=== PATIENT | male | born 1945 | race Caucasian/White ===

== ENCOUNTER 2018-02-12 19:50 | Emergency (ER) | payer OTHER, MEDICARE ==
[~2018-02-12] VITALS: Ht 167.6 cm; Wt 86.8 kg
[~2018-02-12 19:50] MED LIST: AMLO-110 PO; CLOP1TAB15 PO; FLNIN NAE; FLX10 PO; LISI-787 PO; LPT40 PO; MAGN1TAB19 PO; MULT-513 PO; OMEG10007 PO; RANI150T2 PO
[2018-02-12 19:54] VITALS: TEMP 36.8; Ht 167.6 cm; Wt 86.8 kg
[2018-02-12 20:20] LABS: BASO % 0.4 %; BASO ABS # 0.03 K/uL (0-0.2); EOS % 6.7 %; EOS ABS # 0.48 K/uL (0-0.5); HEMATOCRIT 42.8 % (42-52); HEMOGLOBIN 15.1 g/dL (14.0-18.0); IG# 0.01 K/uL (0.00-0.02); LYMPH % 46.2 %; LYMPH ABS # 3.33 K/uL (1.2-3.4); MEAN CELL VOLUME 90.1 fL (80-100); MEAN CORPUSCULAR HEMOGLOBIN 31.8 pg (25-34); MEAN CORPUSCULAR HGB CONC 35.3 g/dl (32-36); MEAN PLATELET VOLUME 10.3 fL (7.4-10.4); MONO % 7.4 %; MONO ABS # 0.53 K/uL (0.11-0.59); NEUT % 39.2 %; NEUT ABS # 2.83 K/uL (1.4-6.5); PLATELET COUNT 202 K/uL (130-400); RED CELL DISTRIBUTION WIDTH CV 12.4 % (11.5-14.5); RED CELL DISTRIBUTION WIDTH SD 40.7 fL (36.4-46.3); WHITE BLOOD COUNT 7.21 K/uL (4.8-10.8)
[2018-02-12 20:49] LABS: ALBUMIN 3.9 gm/dl (3.4-5.0); CALCIUM 9.1 mg/dl (8.5-10.1); CREATININE 1.06 mg/dl (0.60-1.40); POTASSIUM 3.7 mmol/L (3.5-5.1); TOTAL PROTEIN 7.4 gm/dl (6.4-8.2)
--- NOTE | 2018-02-12 20:52 | DIAGNOSTIC IMAGING REPORT ---
CHEST ONE VIEW PORTABLE HISTORY: Atypical chest pain COMPARISON: Chest 11/25/2014. FINDINGS: The heart remains borderline enlarged. Stable linear scarlike density at the left lung base. The lungs are otherwise clear. No pleural effusions. No pneumothorax. IMPRESSION: No significant change compared to the prior study. No acute process. Electronically signed by: Laurent Abbasi M.D. 02/12/2018 8:51 PM Dictated Date/Time: 02/12/2018 8:50 PM
--- NOTE | 2018-02-12 21:03 | EMERGENCY ROOM VISIT NOTE ---
ED Visit Note First contact with patient: 19:57 Resident Physician Supervision Note: I was present with Dr. Dwain Mcbride during the history and exam. I discussed the case with the resident and agree with the findings and plan as documented in the note. Documented By: Christopher Flores
--- NOTE | 2018-02-12 21:07 | EMERGENCY ROOM VISIT NOTE ---
History First contact with patient: 19:57 Chief Complaint: CARDIAC ASSESSMENT Stated Complaint: CHEST PAINS AND PALPITATIONS History of Present Illness The patient is a 72 year old male who presents to the Emergency Room with complaints of palpitations starting this afternoon while driving back from [place]. Patient has had this intermittently in the past, starting 10+ years ago but today it was more prolonged and noticeable. Patient denies any SOB, chest pain, dizziness, syncope or vertigo. Patient states that his pain may all be muscle related. He hasn't done any heavy lifting recently. There is no numbness or tingling in the extremities. who is present states that she thinks that pt's legs were more swollen starting today. Patient has no significant cardiac history. No previous diagnosis of A Fib or A Flutter. He did have a cath 10 years ago and no stents were placed. Pt did mention he was currently having a palpitation - HR on monitor was in the 70s. There was evidence of contraction of the pectoralis major muscle. Pt had one cup of caffeine today - that is normal for him. ROS: No diarrhea, no vomiting, hasn't eaten any new foods. Review of Systems See HPI for pertinent positives and negatives. A total of ten systems were reviewed and were otherwise negative. Constitutional: No fever, No chills Respiratory: No cough, No sputum, No shortness of breath, No dyspnea on exertion Cardiovascular: + palpitations, No chest pain Abdomen: No pain, No nausea, No vomiting, No diarrhea, No constipation Musculoskeletal: No joint pain Genitourinary - Male: No hematuria, No dysuria Past Medical/Surgical History Medical Problems: (1) Benign hypertension (2) History of renal calculi (3) Hyperlipidemia (4) Sleep apnea (5) Tobacco user (6) Transient global amnesia Surgical Problems: (1) Status post cardiac catheterization Social History Smoking Status: Former Smoker Marital Status: Housing Status: lives with family Occupation Status: employed Current/Historical Medications Scheduled Amlodipine (Norvasc), 5 MG PO DAILY Atorvastatin (Lipitor), 40 MG PO QPM Clopidogrel (Plavix), 75 MG PO DAILY Fish Oil ([place]-3), 1 CAP PO BID Lisinopril/Hctz (Zestoretic 20MG/12.5MG), 1 TAB PO BID Magnesium Oxide (Mg Supplement (Magnesium Oxide), 400 MG PO DAILY Multivitamins/Minerals (Mvi With Minerals), 1 TAB PO DAILY Ranitidine HCl (Ranitidine HCl), 150 MG PO BID Scheduled PRN Cyclobenzaprine Hcl (Flexeril *), 5 MG PO TID PRN Fluticasone Propionate (Flonase Nasal [place] *), 2 SPRAYS YUNIOR DAILY PRN Physical Exam Vital Signs Date Time Temp Pulse Resp B/P (MAP) Pulse Ox O2 Delivery O2 Flow Rate FiO2 02/12/18 20:40 69 18 155/87 98 Room Air 02/12/18 20:39 67 02/12/18 20:02 97 Room Air 02/12/18 19:54 36.8 80 18 169/80 94 Room Air Physical Exam Gen: No acute distress. Obese. HEENT: Head - normocephalic and atraumatic. Pupils are equal, round, and reactive to light. Extraocular eye muscles are intact and sclera are anicteric. Nose - moist nasal mucosa without discharge. Mouth - moist buccal mucosa. Oropharynx is nonerythematous and there is no tonsillar exudate or edema noted. Neck: Supple; no JVD, nuchal rigidity, cervical lymphadenopathy, or auscultated bruits. Heart: Regular rate and rhythm. There is a normal S1 and S2 with no murmurs, clicks, or gallops appreciated. Lungs: Clear to auscultation bilaterally with no wheezes, rales, or rhonchi. Abdomen: Soft, completely nontender, nondistended, with good bowel sounds. There are no palpable pulsatile masses or hepatosplenomegaly. There is no guarding, rigidity, or rebound noted. Extremities: No evidence of cyanosis, clubbing. 2+ pitting edema noted on the LE. There are easily palpable peripheral pulses. Neuro:The patient is awake and alert, oriented to day, time, and place. Muscle strength is 5/5 in all 4 extremities. 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 There are no cerebellar signs. Medical Decision & Procedures Laboratory Results 02/12/18 20:06 Red Blood Count 4.75, Mean Corpuscular Volume 90.1, Mean Corpuscular Hemoglobin 31.8, Mean Corpuscular Hemoglobin Concent 35.3, Mean Platelet Volume 10.3, Neutrophils (%) (Auto) 39.2, Lymphocytes (%) (Auto) 46.2, Monocytes (%) (Auto) 7.4, Eosinophils (%) (Auto) 6.7, Basophils (%) (Auto) 0.4, Neutrophils # (Auto) 2.83, Lymphocytes # (Auto) 3.33, Monocytes # (Auto) 0.53, Eosinophils # (Auto) 0.48, Basophils # (Auto) 0.03 Test 02/12/18 20:06 02/12/18 20:09 White Blood Count 7.21 K/uL (4.8-10.8) Red Blood Count 4.75 M/uL (4.7-6.1) Hemoglobin 15.1 g/dL (14.0-18.0) Hematocrit 42.8 % (42-52) Mean Corpuscular Volume 90.1 fL (80-100) Mean Corpuscular Hemoglobin 31.8 pg (25-34) Mean Corpuscular Hemoglobin Concent 35.3 g/dl (32-36) Platelet Count 202 K/uL (130-400) Mean Platelet Volume 10.3 fL (7.4-10.4) Neutrophils (%) (Auto) 39.2 % Lymphocytes (%) (Auto) 46.2 % Monocytes (%) (Auto) 7.4 % Eosinophils (%) (Auto) 6.7 % Basophils (%) (Auto) 0.4 % Neutrophils # (Auto) 2.83 K/uL (1.4-6.5) Lymphocytes # (Auto) 3.33 K/uL (1.2-3.4) Monocytes # (Auto) 0.53 K/uL (0.11-0.59) Eosinophils # (Auto) 0.48 K/uL (0-0.5) Basophils # (Auto) 0.03 K/uL (0-0.2) RDW Standard Deviation 40.7 fL (36.4-46.3) RDW Coefficient of Variation 12.4 % (11.5-14.5) Immature Granulocyte % (Auto) 0.1 % Immature Granulocyte # (Auto) 0.01 K/uL (0.00-0.02) Bedside Troponin I < 0.030 ng/ml (0-0.045) ECG Per My Interpretation Indication: palpitations Rate (beats per minute): 85 Rhythm: normal sinus Findings: 1st degree AV block, no acute ischemic change, no ectopy Change: no significant change Medical Decision The patient's care and disposition was discussed with , Attending ED Physician. This is a 72M with palpitations. Differential diagnosis include ectopy, cardiac dysrhythmia, electrolyte abnormality, thyroid dysfunction, pulmonary embolism, infection, gastrointestinal, as well as others were entertained. Triage Nursing notes were reviewed. ED Course included an extensive history and physical exam, labs, X-ray. 8:15 - Pt was seen and examined by resident. 8:30 - Discussed pt with Dr. Flores. 9:15 - Results discussed with patient. No metabolic cause of palpitations was found. Pt further states that when he bring his left arm closer to his body his palpitations go away. This suggest an MSK etiology. ALP was also incidentally found to be elevated. Pt appears to have always been on the high end of normal in terms of ALP. Defer to PCP for further workup - repeating ALP , GGT or Liver US. The pt was informed about the findings as listed above. All questions were answered. Return instructions were outlined and the patient was discharged in good condition. The patient was referred to PCP for recheck of the current condition. Head Trauma GCS Score: 15 Impression Primary Impression: Palpitation Departure Information Dispostion Home / Self-Care Condition GOOD Referrals No Doctor, Assigned (PCP) Patient Instructions ED Palpitations, My [facility] Additional Instructions We could not find an obvious source of your palpitations. The story suggests a benign etiology such as a muscle spasm. On your lab work an elevated Alkaline Phosphatase was found. We recommend following up with your PCP regarding what to do when this number is elevated. Your primary care doctor might orders further blood work or imaging. Your heart enzymes, thyroid enzymes, EKG and X-ray were normal. Your primary care provider may wish to order a monitor for your heart or may be satisfied with careful observation of your symptoms. You may wish to limit your use of caffeine to avoid palpitations in the future. Information on heart palpitations will be printed for your on discharge. Although the probability that these palpitations were actually your "heart" you may benefit from reading this information. Resident Involvement: Resident Care Provided Care Provided: Adult [facility]
[2018-02-12] MEDS ORDERED: MULT-506 PO (21:21)
[2018-02-12] MEDS ORDERED: IBUP-1050 PO (21:21)
[2018-02-12] MEDS ORDERED: CLON0.5T3 PO (21:21)
[2018-02-12] MEDS ORDERED: AMLO2.5T PO (21:21)
[2018-02-12] MEDS ORDERED: FLUT0.15 NAE (21:21)
[2018-02-12] MEDS ORDERED: SILD1TAB39 PO (21:21)
[2018-02-12] MEDS ORDERED: ASPI81TA28 PO (21:21)
[2018-02-12] MEDS ORDERED: MAGN400T6 PO (21:21)
[2018-02-12] MEDS ORDERED: ROPI0.5T15 PO (21:21)
[2018-02-12] MEDS ORDERED: ATOR-24 PO (21:21)
[2018-02-12] MEDS ORDERED: CETI10TA84 PO (21:21)
[2018-02-12] MEDS ORDERED: RANI150T3 PO (21:21)
[2018-02-12] MEDS ORDERED: POTA10CA28 PO (21:21)
[2018-02-12] MEDS ORDERED: LISI-787 PO (21:21)
[2018-02-12] MEDS ORDERED: ACET-1311 PO (21:21)
[2018-02-12] MEDS ORDERED: FIBETAB PO (21:21)
[2018-02-12] MEDS ORDERED: TAMS0.4C38 PO (21:21)
[2018-02-12 21:25] VITALS: BP 146/76; PULSE 76; O2SAT 98
== END 2018-02-12 21:27 | disposition home or self-care (01) ==
LOC: C.EDB 19:51 → C.EDA 21:27
DX: R00.2 Palpitations (principal); Z95.5 Presence of coronary angioplasty implant and graft; I10 Essential (primary) hypertension; Z87.442 Personal history of urinary calculi; E78.5 Hyperlipidemia, unspecified; G47.30 Sleep apnea, unspecified; E66.9 Obesity, unspecified; Z87.891 Personal history of nicotine dependence; Z79.01 Long term (current) use of anticoagulants; Z79.899 Other long term (current) drug therapy